=== PATIENT | male | born 1980 | race Caucasian/White ===

== ENCOUNTER 2018-04-01 12:21 | Emergency (ER) | payer SELFPAY ==
[~2018-04-01] VITALS: Ht 167.6 cm; Wt 72.7 kg
[2018-04-01 17:52] VITALS: BP 128/61
== END 2018-04-01 18:05 | disposition home or self-care (01) ==
LOC: EMS 12:21
DX: R07.89 Other chest pain (principal); F15.10 Other stimulant abuse, uncomplicated
CPT/HCPCS: 93005

== ENCOUNTER 2018-08-04 09:12 | Emergency (ER) | payer SELFPAY ==
[~2018-08-04] VITALS: Ht 170.2 cm; Wt 81.0 kg
[2018-08-04 11:45] VITALS: BP 125/82
[2018-08-04] MEDS ORDERED: PERTUSS(ACELL),DIPH,TET VAC/PF 0.5 ML VIAL IM ONE (11:45)
[2018-08-04] MEDS ORDERED: LIDOCAINE/PF 1% 2 ML VIAL IM ONE (11:45)
[2018-08-04] MEDS ORDERED: CefTRIAXone SODIUM 1 GM/VIAL IM ONE (11:45)
[2018-08-04] MEDS ORDERED: DOXYCYCLINE HYCLATE 100 MG CAPSULE PO ONE (11:45)
== END 2018-08-04 12:23 | disposition home or self-care (01) ==
LOC: EMS 09:14
DX: L02.413 Cutaneous abscess of right upper limb (principal)
CPT/HCPCS: 10060; 90471; 90715; 96372; 99283; J0696; J3490

== ENCOUNTER 2020-08-05 19:58 | Emergency (ER) | payer OTHER ==
[~2020-08-05] VITALS: Ht 170.2 cm; Wt 90.9 kg
[2020-08-05] MEDS ORDERED: ACETAMINOPHEN 500 MG TABLET PO ONE (22:00)
[2020-08-05 22:45] LABS: COVID AG,FIA SOURCE NASOPHARYNGEAL
[2020-08-05] MEDS ORDERED: LIDOCAINE 1%/EPI 1:200,000/PF 10 ML VIAL SQ ONE (23:00)
[2020-08-05] MEDS ORDERED: KETOROLAC TROMETHAMINE 60 MG/2 ML VIAL IM ONE (23:00)
[2020-08-05] MEDS ORDERED: DEXAMETHASONE SOD PHOS 4 MG/ML 5 ML VIAL IM ONE (23:00)
[2020-08-05 23:18] LABS: RAPID GROUP A STREP NEGATIVE (NEGATIVE)
[2020-08-06 01:45] VITALS: BP 131/71
[2020-08-06] MEDS ORDERED: CLINDAMYCIN HCL 150 MG CAPSULE PO ONE (01:45)
== END 2020-08-06 01:55 | disposition home or self-care (01) ==
LOC: EMS 19:58
DX: J36 Peritonsillar abscess (principal); Z20.822 Contact with and (suspected) exposure to COVID-19
CPT/HCPCS: 87426; 87430; 96372; 99284; J1100; J1885; J3490